=== PATIENT | male | born 1965 ===

== ENCOUNTER 2021-01-22 17:50 | Emergency (ER) | payer SELFPAY ==
[2021-01-22 17:52] VITALS: BP 153/103; PULSE 93; RESP 20; TEMP 36.6; O2SAT 97; BMI 26.6
== END 2021-01-22 21:17 | disposition left against medical advice (07) ==
PROVIDERS: Emergency Provider Emergency Medicine; PCP Internal Medicine
DX: M54.50 Low back pain, unspecified (principal)
CPT/HCPCS: 99281; 99282